=== PATIENT | female | born 1960 | race Native Hawaiian/Other Pacific Islander ===

== ENCOUNTER 2023-04-05 18:38 | Emergency (ER) | payer SELFPAY ==
[2023-04-05] VITALS (16 sets, daily range): BP systolic 155–210; BP diastolic 70–98; PULSE 64–80; RESP 18–20; TEMP 36.3; O2SAT 96–99; BMI 40.6
--- NOTE | 2023-04-05 18:43 | ED.GENADULT ---
HPI - General Adult General Chief complaint: Abdominal Pain Stated complaint: dizzyness/abd pain/neck pain tingling rt side Time Seen by Provider: 04/05/23 18:41 History of Present Illness HPI narrative: 62-year-old female nonsmoker, [place] speaking, with family as translators at the bedside presents with a chief complaint right-sided neck pain with radiation to her shoulder for the past year or so. She denies any trauma or injury. She has had neck pain that radiates into her shoulder and arm. She denies any weakness. No fever or chills. 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 She is had no fever or chills. She denies any difficulty swallowing. She denies any chest pain or shortness of breath. She does report the occasional episodes of an intense pain on her right side without obvious provocation, palliation or radiation. No vomiting, no constipation or diarrhea, no urinary complaints. Related Data Previous Rx's Medication Instructions Recorded cyclobenzaprine 10 mg tablet 10 mg PO TID PRN muscle spasm #14 04/05/23 tabs gabapentin 300 mg capsule 300 mg PO BEDTIME #14 caps 04/05/23 lidocaine 5 % topical patch 1 patch topical DAILY #15 ea 04/05/23 (Lidoderm) Allergies Allergy/AdvReac Type Severity Reaction Status Date / Time No Known Drug Allergies Allergy Verified 04/05/23 19:01 Review of Systems Review of Systems Narrative: GENERAL: Denies chills, fatigue, malaise, fever, sweats. HEENT: Denies sinus pain, ear pain, sore throat, difficulty swallowing, dizziness. RESPIRATORY: Denies dyspnea, cough, wheezing, hemoptysis, sputum. CARDIOVASCULAR: Denies chest pain, palpitations, orthopnea, edema, GASTROINTESTINAL: Denies nausea, vomiting, abdominal pain, diarrhea, constipation, melena. : Denies dysuria, frequency, incontinence, hematuria, urinary retention. MUSCULOSKELETAL: See HPI SKIN: Denies rash, skin lesions, or other NEUROLOGIC: See HPI PSYCHIATRIC: No concerning psychosocial issues. 12 point review of systems is negative except for those stated above Patient History Social History Smoking Status: Never smoker Exam Narrative Exam Narrative: GENERAL: [62] year old patient appears stated age. Well-developed patient, in mild distress. HEAD: Atraumatic. Normocephalic. EYES: Pupils equal round and reactive. Extraocular motions intact. No scleral icterus. No injection or drainage. ENT: Nose without bleeding, purulent drainage. Throat without erythema, tonsillar hypertrophy or exudate. Airway patent. NECK: Pain in the paraspinal musculature on the right side of neck, no change with axial loading, no measurable numbness or weakness CARDIOVASCULAR: Regular rate and rhythm without murmurs, gallops, or rubs. RESPIRATORY: Clear to auscultation. Breath sounds equal bilaterally. No wheezes, rales, or rhonchi. GASTROINTESTINAL: Abdomen soft, non-tender, nondistended. EXTREMITIES: No edema or joint tenderness. BACK: Nontender without deformity or crepitance. No flank tenderness. NEURO: AOx3. SKIN: No rash or erythema of visible areas Initial Vital Signs Initial Vital Signs: Vital Signs Pulse Rate 80 04/05/23 18:49 Blood Pressure 210/92 H 04/05/23 18:49 Course Orders Ordered: ED Orders 04/05/23 19:07 CT chest abd pel w con Stat 04/05/23 19:55 Complete Blood Count AUTO DIFF Stat Comprehensive Metabolic Panel Stat Lipase Stat Magnesium Stat Troponin & CK Cardiac Panel Stat Discontinued Medications Cyclobenzaprine HCl (Cyclobenzaprine 10 Mg Prepack) 1 bottle MISC SEEINSTR ONE Stop: 04/05/23 23:34 Last Admin: 04/05/23 23:45 Dose: 1 bottle Documented By: HELEN Sodium Chloride (Normal Saline 0.9%) 1,000 mls @ 1,000 mls/hr IV BOLUS ONE Stop: 04/05/23 20:05 Last Infusion: 04/05/23 23:10 Dose: Infused Documented By: Admin: 04/05/23 19:28 Dose: 1,000 mls/hr Documented By: HELEN Lidocaine (Lidocaine Patch 1 Each Adh..Patch) 1 each TOP NOW ONE Stop: 04/05/23 23:34 Last Admin: 04/05/23 23:45 Dose: 1 each Documented By: HELEN Vital Signs Vital signs: Vital Signs - 8 hr 04/05/23 18:49 04/05/23 18:49 04/05/23 19:00 Temperature Pulse Rate 80 76 Respiratory Rate Blood Pressure 210/92 H Pulse Oximetry 99 Oxygen Delivery Method 04/05/23 19:00 04/05/23 19:01 04/05/23 19:30 Temperature 97.4 F L Pulse Rate 76 70 Respiratory Rate 18 Blood Pressure 206/98 H 210/92 H Pulse Oximetry 98 98 Oxygen Delivery Method Room Air 04/05/23 19:30 04/05/23 20:00 04/05/23 20:00 Temperature Pulse Rate 72 Respiratory Rate Blood Pressure 195/91 H 179/84 H Pulse Oximetry 97 Oxygen Delivery Method 04/05/23 20:12 04/05/23 20:12 04/05/23 20:30 Temperature Pulse Rate 67 68 Respiratory Rate Blood Pressure 166/80 H Pulse Oximetry 97 96 Oxygen Delivery Method 04/05/23 20:30 04/05/23 20:30 04/05/23 21:02 Temperature Pulse Rate 68 68 Respiratory Rate Blood Pressure 183/80 H Pulse Oximetry 96 97 Oxygen Delivery Method 04/05/23 21:18 04/05/23 21:18 04/05/23 21:18 Temperature Pulse Rate 65 66 Respiratory Rate 20 Blood Pressure 155/86 H 155/86 H Pulse Oximetry 98 97 Oxygen Delivery Method Room Air 04/05/23 21:30 04/05/23 21:30 04/05/23 22:00 Temperature Pulse Rate 64 66 Respiratory Rate Blood Pressure 160/85 H Pulse Oximetry 96 96 Oxygen Delivery Method 04/05/23 22:00 04/05/23 22:30 04/05/23 22:30 Temperature Pulse Rate 71 Respiratory Rate Blood Pressure 155/79 H 159/70 H Pulse Oximetry 97 Oxygen Delivery Method 04/05/23 23:00 04/05/23 23:01 04/05/23 23:01 Temperature Pulse Rate 66 66 Respiratory Rate Blood Pressure 158/76 H Pulse Oximetry 97 97 Oxygen Delivery Method 04/05/23 23:11 04/05/23 23:11 04/05/23 23:30 Temperature Pulse Rate 79 69 Respiratory Rate Blood Pressure 160/79 H Pulse Oximetry 96 97 Oxygen Delivery Method 04/05/23 23:30 Temperature Pulse Rate Respiratory Rate 18 Blood Pressure 163/79 H Pulse Oximetry Oxygen Delivery Method Medical Decision Making Lab Data 04/05/23 19:55 04/05/23 19:55 Labs: Lab Results 04/05/23 Range/Units 19:55 WBC 8.6 (4.5-11.0) X10^3/uL RBC 4.33 (4.0-5.2) X10^6/uL Hgb 12.3 (12.0-16.0) g/dL Hct 37.9 (36-46) % MCV 87.4 (80-100) fL MCH 28.5 (26-34) PG MCHC 32.6 (30-36) % RDW 13.0 (11.6-14.8) % Plt Count 244 (150-400) X10^3/uL Neut % (Auto) 67.3 (50-75) % Lymph % (Auto) 23.3 L (25-40) % Turner % (Auto) 7.3 (3-14) % Eos % (Auto) 1.3 L (2-4) % Baso % (Auto) 0.8 (0-2) % Neut # (Auto) 5800 (4805-0885) /uL Lymph # (Auto) 2000 (3233-1086) /uL Turner # (Auto) 600 (0-900) /uL Eos # (Auto) 100 (0-450) /uL Baso # (Auto) 100 (0-100) /uL Sodium 139 (137-145) mmol/L Potassium 3.8 (3.4-5.1) mmol/L Chloride 101 (98-107) mmol/L Carbon Dioxide 27 (22-32) mmol/L BUN 14 (7-17) mg/dL Creatinine 0.70 (0.52-1.04) mg/dL Estimated GFR > 60 (>60) mL/min BUN/Creatinine Ratio 20.0 (6-22) Glucose 103 (80-110) mg/dL Calcium 9.0 (8.4-10.2) mg/dL Magnesium 2.0 (1.6-2.3) mg/dL Total Bilirubin 0.5 (0.2-1.3) mg/dL AST 23 (14-36) IU/L ALT 19 (<35) IU/L Alkaline Phosphatase 53 (38-126) U/L Total Creatine Kinase 178 H (30-135) U/L Troponin I < 0.012 (0.01-0.034) ng/mL Total Protein 8.3 H (6.3-8.2) g/dL Albumin 4.3 (3.5-5.0) g/dL Globulin 4.0 (1.7-4.1) g/dL Albumin/Globulin Ratio 1.1 (1.0-2.8) Lipase 53 (23-300) U/L Urine Dip Bedside Urine Glucose Negative Bedside Urine Bilirubin - Negative Bedside Urine Ketone - Negative Urine Specific [place] 1.015 Bedside Urine Occult Blood - Negative Bedside Urine pH 6.0 Bedside Urine Protein - Negative Bedside Urine Urobilinogen - Negative Bedside Urine Nitrite - Negative Bedside Urine Leukocytes - Negative Esterase Point of care testing: Urine Dip Bedside Urine Glucose Negative Bedside Urine Bilirubin - Negative Bedside Urine Ketone - Negative Urine Specific [place] 1.015 Bedside Urine Occult Blood - Negative Bedside Urine pH 6.0 Bedside Urine Protein - Negative Bedside Urine Urobilinogen - Negative Bedside Urine Nitrite - Negative Bedside Urine Leukocytes - Negative Esterase MDM Narrative Medical decision making narrative: [62] year old patient presents with right-sided neck pain into her shoulder and episodes of right abdominal pain for the past year Multiple etiologies for patient's symptoms considered including, but not limited to: [Paraspinal spasm versus radiculopathy versus other Prior Charts reviewed in our EMR Primary Historian: patient Labs reviewed and interpreted by myself: No significant abnormalities requiring specific or immediate intervention Imaging reviewed: Chest abdomen pelvis without acute findings Patient's symptoms improved over duration of stay with above-stated therapies. Multiple diagnoses considered as noted above. No red flag findings of cervical spinal compression are present. Symptoms most consistent with cervical radiculopathy Findings and discharge diagnosis discussed with patient/family followed by verbalization of understanding Return precautions discussed with patient/family whom verbalize understanding of diagnosis and plan Discharge Plan Departure Patient Disposition: Home Clinical Impression: Cervical paraspinal muscle spasm, Cervical radiculopathy Instructions: DI for Cervical Radiculopathy Activity Restrictions/Additional Instructions: *You have been diagnosed with [cervical radiculopathy] *What to do: *Please continue to take your regular medications as directed. [x] New medication prescriptions sent to your pharmacy: [[facility] in [place] ] [ ] New medication written as a paper prescription [ ] No new medications given *Please follow up with your primary care provider in 2-3 days, call for an appointment. Let them know you were seen in the Emergency Department and that we ask that you be seen in follow up. We will electronically transmit a record of today's note if your PCP is in our system *If you do not have a primary care provider please contact the [facility] Resource line at [phone]. They will ask some questions about your medical history and help get you set up with a doctor in the community. *Return to Emergency Department if you should have any new, worsening or concerning symptoms, such as [fever greater than 101 F, shaking chills, worsening pain, persistent vomiting or other bothersome symptoms] Prescriptions: New cyclobenzaprine 10 mg tablet 10 mg PO TID PRN (Reason: muscle spasm) Qty: 14 0RF lidocaine [Lidoderm] 5 % adhesive patch,medicated 1 patch TOP DAILY Qty: 15 0RF Rx Instructions: leave on most painful area for 12 hrs gabapentin 300 mg capsule 300 mg PO BEDTIME Qty: 14 0RF Stand Alone Forms: Patient Portal/API
--- NOTE | 2023-04-05 19:07 | DI.CT.S_ITS ---
PROCEDURE: CT CHEST ABD PEL W CON INDICATIONS: right side chest / abdomen pain TECHNIQUE: After the administration of intravenous contrast, 5 mm thick sections acquired from the lung apices to the symphysis. 5 mm coronal and sagittal reformats were performed, with additional 7 mm MIP reformats through the lungs. For radiation dose reduction, the following was used: automated exposure control, adjustment of mA and/or kV according to patient size. COMPARISON: None. FINDINGS: CHEST: Lungs and pleura: No consolidation, pleural effusion, or pneumothorax. Mediastinum: No pericardial effusion. No mediastinal or hilar adenopathy by size criteria. Thoracic aorta and central pulmonary arteries are normal in size. Esophagus is normal in caliber. Chest wall: No axillary or supraclavicular adenopathy by size criteria. . ABDOMEN: Solid organs: Liver is normal in size and enhancement. Gallbladder unremarkable . Biliary system is non dilated. Pancreas enhances normally. Spleen is normal in size and enhancement. No adrenal nodules. No hydronephrosis Peritoneum and bowel: No bowel obstruction. No free air or substantial free fluid. Nodes and vessels: No retroperitoneal or mesenteric adenopathy by size criteria. Aorta and inferior vena cava are normal in size. PELVIS: Genitourinary: Bladder wall thickness is normal. Possible endometrial thickening for patient age and/or fluid within the uterine cavity. Uterus and ovaries not well evaluated by CT. Miscellaneous: No adenopathy. Bones: Multilevel degenerative change of the visualized spine. IMPRESSION: 1. No acute appearing abnormality identified within the chest, abdomen, or pelvis. 2. Possible endometrial thickening for patient age and or fluid within the uterine cavity. This is a nonspecific potential finding, uterus and ovaries are not well evaluated by CT. Nonemergent pelvic ultrasound could be obtained for further evaluation if clinically indicated Dictated by: Zelalem Ortiz M.D. on 04/05/2023 at 21:25 Approved by: Zelalem Ortiz M.D. on 04/05/2023 at 21:35
[2023-04-05] MEDS: SODIUM CHLORIDE 0.9% 1,000 ML 1000 ML IV (19:28)
[2023-04-05 20:05] LABS: Add Manual Diff / Slide Review NO; Basophils Absolute Auto 100 /uL (0-100); Basophils Percent Auto 0.8 % (0-2); Eosinophils Absolute Auto 100 /uL (0-450); Eosinophils Percent Auto 1.3 % (2-4); Hematocrit 37.9 % (36-46); Hemoglobin 12.3 g/dL (12.0-16.0); Lymphocytes Absolute Auto 2000 /uL (1100-4500); Lymphocytes Percent Auto 23.3 % (25-40); Mean Corpuscular HGB Conc 32.6 % (30-36); Mean Corpuscular Hemoglobin 28.5 PG (26-34); Mean Corpuscular Volume 87.4 fL (80-100); Monocytes Absolute Auto 600 /uL (0-900); Monocytes Percent Auto 7.3 % (3-14); Neutrophils Absolute Auto 5800 /uL (1500-7000); Neutrophils Percent Auto 67.3 % (50-75); Platelet Count 244 X10^3/uL (150-400); Red Blood Cell Count 4.33 X10^6/uL (4.0-5.2); White Blood Cell Count 8.6 X10^3/uL (4.5-11.0)
[2023-04-05 20:17] LABS: Alanine Aminotransferase 19 IU/L (<35); Albumin 4.3 g/dL (3.5-5.0); Albumin Globulin Ratio 1.1 (1.0-2.8); Alkaline Phosphatase 53 U/L (38-126); Aspartate Aminotransferase 23 IU/L (14-36); Bilirubin Total 0.5 mg/dL (0.2-1.3); Blood Urea Nitrogen 14 mg/dL (7-17); Carbon Dioxide 27 mmol/L (22-32); Chloride 101 mmol/L (98-107); Creatine Kinase 178 U/L (30-135); Estimated Glomerular Filt Rate > 60 mL/min (>60); Glucose 103 mg/dL (80-110); HEMOLYSIS < 15 (0-50); Lipase 53 U/L (23-300); Potassium 3.8 mmol/L (3.4-5.1); Sodium 139 mmol/L (137-145); Total Protein 8.3 g/dL (6.3-8.2)
[2023-04-05 20:29] LABS: Troponin I < 0.012 ng/mL (0.01-0.034)
[2023-04-05] MEDS: CYCLOBENZAPRINE 10 MG PREPACK 1 BOTTLE MISC (23:45)
[2023-04-05] MEDS: LIDOCAINE PATCH 1 EACH ADH..PATCH TOP (23:45)
== END 2023-04-05 23:51 | disposition home or self-care (01) ==
PROVIDERS: Emergency Provider Emergency Medicine
DX: M54.12 Radiculopathy, cervical region (principal); M62.838 Other muscle spasm
CPT/HCPCS: 36415; 71260; 74177; 80053; 81003; 82550; 83690; 83735; 84484; 85025; 96360; 96361; 99284